=== PATIENT | female | born 1955 | race Two or more races ===

== ENCOUNTER 2021-02-12 00:59 | Emergency (ER) | payer OTHER ==
[~2021-02-12] VITALS: Ht 157.5 cm; Wt 77.1 kg
--- NOTE | 2021-02-12 01:10 | NUR ---
PRESENTED TO THE ER FOR C/O INTERMITTENT L EAR BLEEDING SINCE 1999. DENIED ANY TRAUMA OR INJURY, W/ PMH OF HTN, [place] AND CAARDIAC STERNT . ON ASA AND PLAVIX.
--- NOTE | 2021-02-12 01:14 | NUR ---
DR OLIVO AT [facility] SIDE
--- NOTE | 2021-02-12 01:57 | NUR ---
DR OLIVO AT [facility] SIDE
[2021-02-12 01:58] VITALS: BP 158/84
--- NOTE | 2021-02-12 02:00 | NUR ---
PT IS MEDICALLY STABLE FOR D/C. Patient discharged to home in stable condition. Written and verbal after care instructions given. Patient verbalizes understanding of instruction.
== END 2021-02-12 02:01 | disposition home or self-care (01) ==
LOC: ER 01:07
DX: H92.22 Otorrhagia, left ear (principal); I10 Essential (primary) hypertension; I25.2 Old myocardial infarction; F17.200 Nicotine dependence, unspecified, uncomplicated; Z98.890 Other specified postprocedural states
CPT/HCPCS: 70450-TC